=== PATIENT | female | born 1985 | race Caucasian/White ===

== ENCOUNTER 2019-09-07 22:09 | Emergency (ER) | payer OTHER, SELFPAY ==
[2019-09-07 22:20] VITALS: BP 132/74; PULSE 89; RESP 15; TEMP 36.9; O2SAT 99
--- NOTE | 2019-09-07 22:58 | ED.EXTPRO ---
HPI - Extremity Problem General Chief complaint: Extremity Problem,Nontraumatic Stated complaint: L arm pain Source: patient Mode of arrival: ambulatory Limitations: clinical condition History of Present Illness HPI Narrative: 34 y.o. female c/o sudden onset of pain in the dorsum of the left hand and wrist radiating up to the medial elbow, onset 48 hours ago. It's a pressure sensation which waxes and wanes between #4 - #6/10 associated with tingling sensation of 2nd - 5th fingertips. Sometimes her fingers and whole hand turn white for a short time but does not turn blue. She also c/o swelling of her wrist. The pain is made worse by grabbing onto things, opening and closing her hand and moving her wrist. Raising her arm above her head does not affect it. The pain is decreased if she applies pressure, e.g. sitting on her hand, or applies ice. The pain was most severe last PM. She denies neck, shoulder or axillary pain. Pt states she had a blood clot in her ovary in 2004 for which she took blood thinners for a short time. She had a blood clot in the right shoulder 1.5 years ago which was treated with 12.5 mg warfarin daily. She stopped the medicine after a while. The symptoms of the latter clot were similar to the ones she's having today. She has been moving out of her house for the past few weeks, lifting and carrying a lot of boxes, et cetera. She stopped after the onset of these symptoms because lifting made them worse. She states she has been told she has thick blood. Her maternal grandmother, uncle and aunt are all on blood thinners for clotting problems. She has never been told she has Factor V Leiden deficiency. Related Data Home Medications Medication Instructions Recorded Confirmed quetiapine 200 mg PO HS 09/07/19 09/07/19 Allergies Allergy/AdvReac Type Severity Reaction Status Date / Time clarithromycin Allergy Itching Verified 09/07/19 22:19 Review of Systems Constitutional: Constitutional: Denies chills, Denies fever(s) and Denies weakness Cardiovascular: Cardiovascular: Denies chest pain Respiratory: Respiratory: Denies cough and Denies dyspnea Gastrointestinal: Gastrointestinal: Denies nausea and Denies vomiting Musculoskeletal: Musculoskeletal: Reports no additional musculoskeletal complaints Comments: no leg swelling or pain. Integumentary/Breasts: Comments: Denies dilated veins in the left chest or arm. [facility], [facility] Social History Social History (Updated 09/07/19 @ 23:20 by Giorgio Klein MD) Smoking status: Current every day smoker Exam Const: Other: Appears uncomfortable, holding her left hand and wrist. Neck: Lymphatic: no lymphadenopathy noted Other: no supraclavicular tenderness Chest: Chest palpation & inspection: normal inspection of the chest and no tenderness Other: no left anterior chest dilated veins. Extrem: Left upper extremity: normal to inspection, full ROM, normal capillary refill, shoulder/upper arm (No dilated veins. No tenderness. ), elbow/forearm (tender proximal 1/3 lateral forearm) and wrist tenderness; no cyanosis and no edema Hand/finger images: 1. area of maximal tenderness inside this triangle. 2. No swelling or discoloration 3. no ganglion cyst seen. Course Course Emergency Course: No change in symptoms. Discussed the dx of presumptive left arm/hand strain. Negative d-dimee; no evidence of blood clot. Rest, use wrist splint. Vital Signs Vital signs: Vital Signs Temperature 36.9 C 09/07/19 22:20 Pulse Rate 89 09/07/19 22:20 Respiratory Rate 15 09/07/19 22:20 Blood Pressure 132/74 09/07/19 22:20 Pulse Oximetry 99 09/07/19 22:20 Temperature 36.8 C 09/07/19 23:42 Pulse Rate 72 09/07/19 23:42 Respiratory Rate 19 09/07/19 23:42 Blood Pressure 129/70 09/07/19 23:42 Pulse Oximetry 98 09/07/19 23:42 MDM - Extremity (Nontraumatic) Differential Diagnosis Differential diagnosis: Likely herpes zoster, cellulitis, s
[2019-09-07] MEDS: KETOROLAC (*BKC) 60 MG/2 ML VIAL IM (23:09)
[2019-09-07 23:20] VITALS: BP 128/70; PULSE 70; RESP 16; O2SAT 98
--- NOTE | 2019-09-07 23:22 | PC.NURSE ---
family & patient got warm blankets & soda. Patient denies pain now
[2019-09-07 23:26] LABS: D Dimer 0.19 mg/L (0.19-0.50)
[2019-09-07 23:42] VITALS: BP 129/70; PULSE 72; RESP 19; TEMP 36.8; O2SAT 98
== END 2019-09-07 23:55 | disposition home or self-care (01) ==
PROVIDERS: Emergency Provider Family Medicine; PCP Internal Medicine
DX: M79.642 Pain in left hand (principal); S46.812A Strain of other muscles, fascia and tendons at shoulder and upper arm level, left arm, initial encounter
CPT/HCPCS: 29125; 36415; 85380; 96372; 99281; 99283; J1885

== ENCOUNTER 2019-10-19 11:26 | Outpatient (CLI) | payer OTHER, SELFPAY ==
[2019-10-20 18:03] LABS: SARS-CoV-2 RNA PCR Negative
== END 2019-10-19 11:27 | disposition home or self-care (01) ==
PROVIDERS: PCP Internal Medicine; Visit Provider Internal Medicine
DX: Z20.828 Contact with and (suspected) exposure to other viral communicable diseases (principal)
CPT/HCPCS: 87635; C9803; U0003

== ENCOUNTER 2019-10-22 11:33 | Emergency (ER) | payer OTHER, SELFPAY ==
--- NOTE | ~2019-10-22 | XR_ITS ---
XR hand RT min 3V 10/22/2019 13:31 INDICATION: Right hand pain PROCEDURE: 4 views right hand COMPARISON: No prior studies for comparison. FINDINGS: Fracture, dislocation or subluxation is not identified. The soft tissues appear within norm al limits. No foreign bodies are identified. IMPRESSION: 1: NO ACUTE BONE OR JOINT ABNORMALITY IDENTIFIED. Reviewed, dictated and finalized at location B.
[2019-10-22 11:41] VITALS: BP 128/79; PULSE 68; RESP 20; TEMP 36.1; O2SAT 100
[2019-10-22] MEDS: KETOROLAC (*BKC) 60 MG/2 ML VIAL IM (13:43)
--- NOTE | 2019-10-22 13:59 | ED.UPPEXIN ---
HPI - Extremity Injury (Upper) General Chief Complaint: Extremity Injury, Upper <Melina Casanova PA-C - Last Filed: 10/22/19 15:24> Stated Complaint: R hand pain <MELINDA Johnson Last Filed: 10/22/19 15:24> Time Seen by Provider: 10/22/19 12:19 <Melina Casanova PA-C - Last Filed: 10/22/19 15:24> Source: patient <MELINDA Johnson Last Filed: 10/22/19 15:24> Mode of arrival: ambulatory <MELINDA Johnson Last Filed: 10/22/19 15:24> Limitations: no limitations <MELINDA Johnson Last Filed: 10/22/19 15:24> History of Present Illness HPI narrative: This is a 34-year-old female that presents the emergency department for right second finger pain and swelling x2 days. Reports warmth in the area. Reports she thought she may be cut her nail, but has had continued increased swelling in the area. Reports decreased range of motion due to pain. Denies fever. <Melina Casanova PA-C - Last Filed: 10/22/19 15:24> Related Data Home Medications: Home Medications Medication Instructions Recorded Confirmed quetiapine 200 mg PO HS 09/07/19 09/07/19 <Melina Casanova PA-C - Last Filed: 10/22/19 15:24> Allergies/Adverse Reactions: Allergies Allergy/AdvReac Type Severity Reaction Status Date / Time clarithromycin Allergy Itching Verified 09/07/19 22:19 <Melina Casanova PA-C - Last Filed: 10/22/19 15:24> Review of Systems Review of Systems: Narrative: CONSTITUTIONAL: Denies fever SKIN: Reports redness and swelling MUSCULOSKELETAL: Reports joint pain, and myalgia. <MELINDA Johnson Last Filed: 10/22/19 15:24> All systems reviewed & are unremarkable except as noted in HPI and below <MELINDA Johnson Last Filed: 10/22/19 15:24> [facility] Past Medical History Medical History: Medical History (Updated 10/22/19 @ 15:21 by Melina Casanova PA-C) History of bipolar disorder <Melina Casanova PA-C - Last Filed: 10/22/19 15:24> Social History Social History: Social History (Updated 09/07/19 @ 23:20 by Giorgio Klein MD) Smoking status: Current every day smoker <Melina Casanova PA-C - Last Filed: 10/22/19 15:24> Exam Narrative: Exam Narrative: GENERAL: Well-appearing, well-nourished, and in no acute distress. HEAD: Normocephalic, atraumatic. EYES: EOMI. EXTREMITIES: Normal range of motion. Right second finger with mild edema. Ulnar surface of the nail with paronychia present. Pad of the finger is soft. No concerning erythema of the finger SKIN: Warm, dry, no rash. NEURO: No focal deficits. Alert and oriented x3. PSYCH: Normal mood and affect <Melina Casanova PA-C - Last Filed: 10/22/19 15:24> Course Vital Signs Vital signs: Vital Signs Temperature 96.9 F L 10/22/19 11:41 Pulse Rate 68 10/22/19 11:41 Respiratory Rate 20 10/22/19 11:41 Blood Pressure 128/79 10/22/19 11:41 Pulse Oximetry 100 10/22/19 11:41 Temperature 96.9 F L 10/22/19 11:41 Pulse Rate 88 10/22/19 15:27 Respiratory Rate 16 10/22/19 15:27 Blood Pressure 142/88 H 10/22/19 15:27 Pulse Oximetry 98 10/22/19 15:27 <Melina Casanova PA-C - Last Filed: 10/22/19 15:24> Vital Signs Temperature 96.9 F L 10/22/19 11:41 Pulse Rate 68 10/22/19 11:41 Respiratory Rate 20 10/22/19 11:41 Blood Pressure 128/79 10/22/19 11:41 Pulse Oximetry 100 10/22/19 11:41 Temperature 96.9 F L 10/22/19 11:41 Pulse Rate 88 10/22/19 15:27 Respiratory Rate 16 10/22/19 15:27 Blood Pressure 142/88 H 10/22/19 15:27 Pulse Oximetry 98 10/22/19 15:27 <Alla Driver MD - Last Filed: 10/22/19 16:41> Procedures Abscess I/D hand: Date of Incision: 10/22/19 <Melina Casanova PA-C - Last Filed: 10/22/19 15:24> Time of Incision: 15:20 <Melina Casanova PA-C - Last Filed: 10/22/19 15:24> Side (if applicable): right <Melina Casanova PA-C - Last Filed:
[2019-10-22 15:27] VITALS: BP 142/88; PULSE 88; RESP 16; O2SAT 98
== END 2019-10-22 15:44 | disposition home or self-care (01) ==
PROVIDERS: Emergency Provider General Practice; PCP Internal Medicine
DX: L03.011 Cellulitis of right finger (principal)
CPT/HCPCS: 10060; 12001; 26010; 73130; 96372; 99283; J1885

== ENCOUNTER 2019-11-03 11:05 | Outpatient (CLI) | payer OTHER, SELFPAY ==
[2019-11-05 18:02] LABS: SARS-CoV-2 RNA PCR Negative
== END 2019-11-03 11:06 | disposition home or self-care (01) ==
LOC: CHSLAB 11:07
PROVIDERS: PCP Internal Medicine; Visit Provider Internal Medicine
DX: Z20.828 Contact with and (suspected) exposure to other viral communicable diseases (principal)
CPT/HCPCS: 87635; C9803; U0003

== ENCOUNTER 2020-02-28 01:02 | Emergency (ER) | payer OTHER, SELFPAY ==
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
[2020-02-28 01:18] VITALS: BP 100/60; PULSE 80; RESP 18; TEMP 36.6; O2SAT 95
[2020-02-28 02:17] LABS: Basophils Absolute Auto 0.04 K/mm3 (0.00-0.10); Basophils Percent Auto 0.6 % (0.0-1.0); Eosinophils Percent Auto 1.4 % (1.0-6.0); Hematocrit 41.1 % (35.0-49.0); Hemoglobin 13.4 g/dL (12.0-15.0); Immature Granulocyte Absolute 0.01 K/mm3 (0.00-0.00); Immature Granulocyte Percent A 0.1 % (0.0-0.0); Lymphocytes Absolute Auto 2.04 K/mm3 (1.10-4.50); Lymphocytes Percent Auto 29.2 % (18.0-42.0); Mean Corpuscular HGB Conc 32.6 g/dL (32.0-36.0); Mean Corpuscular Hemoglobin 31.5 pg (27.0-31.0); Mean Corpuscular Volume 96.7 fL (78.0-102.0); Mean Platelet Volume 10.4 fl (9.2-11.8); Monocytes Absolute Auto 0.34 K/mm3 (0.10-0.90); Monocytes Percent Auto 4.9 % (2.0-11.0); Neutrophils Absolute Auto 4.5 K/mm3 (1.7-7.2); Neutrophils Percent Auto 63.8 % (50.0-70.0); Platelet Count Result 286 K/mm3 (150-420); Red Blood Count 4.25 M/mm3 (4.20-5.40); Red Cell Distribution Width 12.5 % (11.6-14.4)
[2020-02-28] MEDS: ACETAMINOPHEN 500 MG TABLET 1000 MG PO (02:19)
[2020-02-28 02:30] VITALS: BP 120/60; PULSE 80; RESP 18; O2SAT 95
[2020-02-28 02:32] LABS: Alanine Aminotransferase 43 U/L (14-59); Albumin Level 4.1 g/dL (3.4-5.0); Alkaline Phosphatase 88 U/L (46-116); Anion Gap 7 mmol/L (8-16); Aspartate Amino Transferase 14 U/L (15-37); Bilirubin,Total 0.6 mg/dL (0.00-1.00); Blood Urea Nitrogen 21 mg/dL (7-18); Calcium 8.9 mg/dL (8.5-10.1); Carbon Dioxide 28 mmol/L (21-32); Chloride 101 mmol/L (98-108); Estimated CRCL calculation 80 ml/min; Estimated Glomerular Filt Rate > 60; Glucose 88 mg/dL (70-99); Lipase 46 U/L (73-393); Osmolality Calculated 284 mOsm/kg (285-295); Potassium 3.7 mmol/L (3.5-5.1); Sodium 136 mmol/L (136-145); Total Protein 8.2 g/dL (6.4-8.2)
[2020-02-28 02:59] VITALS: BP 111/60; PULSE 80; RESP 18; TEMP 36.8; O2SAT 95
[2020-02-28 03:13] LABS: Amphetamine Screen Urine Positive (Negative); Barbiturate Screen Urine Negative (Negative); Benzodiazepines Screen Urine Positive (Negative); Cannabinoid Screen Urine Positive (Negative); Cocaine Screen Urine Negative (Negative); Methadone Screen Urine Negative (Negative); Opiate Screen Urine Negative (Negative); Phencyclidine Screen Urine Negative (Negative)
== END 2020-02-28 03:00 | disposition home or self-care (01) ==
PROVIDERS: Emergency Provider Family Medicine; PCP Internal Medicine
DX: M54.2 Cervicalgia (principal); V89.2XXA Person injured in unspecified motor-vehicle accident, traffic, initial encounter
CPT/HCPCS: 36415; 70450; 72125; 80053; 80307; 83690; 85025; 99282; 99284

== ENCOUNTER 2022-01-16 17:36 | Emergency (ER) | payer MEDICAID, SELFPAY ==
--- NOTE | ~2022-01-16 | CT_ITS ---
EXAMINATION: CT abdomen pelvis wo con DATE: 01/16/2022 19:20 INDICATION: LOWER Abdominal pain TECHNIQUE: Computed tomography (CT) of the abdomen and pelvis was performed without intravenous contr ast. Automated exposure control and iterative reconstruction technique were employed. The dose-length product was 354.22 mGy-cm. COMPARISON: 07/14/2017. FINDINGS: Lower thorax: Unremarkable Liver: Normal. Biliary/Gallbladder: Gallbladder is absent. No bile duct dilation. Pancreas: No mass or duct dilation. Spleen: Old granulomatous calcifications Adrenals:No mass. Kidneys: No mass, stone, or hydronephrosis. The mid and distal ureters are poorly visualized. GI tract: No small or large bowel dilation. Appendix not visualized. Large volume of colonic stool. Mesentery/Peritoneum: No ascites, mass, or free air. Retroperitoneum: No mass. Pelvis: Mild bladder wall thickening given the degree of distention. Retroverted uterus. Soft Tissues: Uncomplicated fat-containing umbilical hernia. Bones: No acute osseous finding. Bilateral sacroiliitis. IMPRESSION: Possible cystitis. Possible constipation. Otherwise no acute abdominopelvic process detected. Reviewed, dictated and finalized at location K. AINABILITY CONSULTANT IMPRESSION: Possible cystitis. Possible constipation. Otherwise no acute abdominopelvic pro cess detected.
[2022-01-16 17:48] VITALS: BP 126/94; PULSE 92; RESP 18; TEMP 36.6; O2SAT 100
--- NOTE | 2022-01-16 18:05 | ECG_ITS ---
Measurements Intervals [place] Rate: 84 P: 51 AK: 147 QRS: 53 QRSD: 99 T: 49 QT: 374 QTc: 443 Interpretive Statements SINUS RHYTHM NORMAL ECG NO PREVIOUS ECG AVAILABLE FOR COMPARISON Electronically Signed On 01-17-2022 8:46:51 VETERINARY TECHNICIAN ASSISTANT by Simba San M.D.
[2022-01-16] MEDS: SODIUM CHLORIDE 0.9% IV 1,000 ML 999 ML IV CONT (18:21)
[2022-01-16] MEDS: KETOROLAC 30 MG/ML VIAL (*BKC) IV PUSH (18:22)
[2022-01-16] MEDS: METOCLOPRAMIDE HCL INJ 10 MG/2 ML VIAL IV PUSH (18:22)
[2022-01-16 18:45] LABS: Basophils Absolute Auto 0.02 K/mm3 (0.00-0.10); Basophils Percent Auto 0.4 % (0.0-1.0); Eosinophils Absolute Auto 0.01 K/mm3 (0.02-0.50); Eosinophils Percent Auto 0.2 % (1.0-6.0); Hematocrit 41.1 % (35.0-49.0); Hemoglobin 13.6 g/dL (12.0-15.0); Immature Granulocyte Absolute 0.01 K/mm3 (0.00-0.00); Immature Granulocyte Percent A 0.2 % (0.0-0.0); Lymphocytes Absolute Auto 1.32 K/mm3 (1.10-4.50); Lymphocytes Percent Auto 23.8 % (18.0-42.0); Mean Corpuscular HGB Conc 33.1 g/dL (32.0-36.0); Mean Corpuscular Hemoglobin 30.5 pg (27.0-31.0); Mean Corpuscular Volume 92.2 fL (78.0-102.0); Mean Platelet Volume 10.5 fl (9.2-11.8); Monocytes Absolute Auto 0.25 K/mm3 (0.10-0.90); Monocytes Percent Auto 4.5 % (2.0-11.0); Neutrophils Absolute Auto 3.9 K/mm3 (1.7-7.2); Neutrophils Percent Auto 70.9 % (50.0-70.0); Platelet Count Result 187 K/mm3 (150-420); Red Blood Count 4.46 M/mm3 (4.20-5.40); Red Cell Distribution Width 12.4 % (11.6-14.4); White Blood Count 5.6 K/mm3 (4.8-10.8)
[2022-01-16 18:51] LABS: Add Urine Microscopic? YES; Bilirubin Urine Negative (Negative); Blood Urine Negative (Negative); Color Urine Yellow (Yellow); Glucose Urine UA Negative (Negative); Ketones Urine 3+ (Negative); Leukocyte Esterase Ur Trace LEU/UL (Negative); Nitrate Urine Negative (Negative); Protein Urine 1+ (Negative); pH Urine 6.5 (5.0-8.0)
[2022-01-16 18:53] LABS: INR 1.1; Partial Thromboplastin Time 29.1 SEC (23.90-30.70); Prothrombin Time 11.6 Seconds (9.50-12.10)
[2022-01-16 18:57] LABS: Alanine Aminotransferase 20 U/L (14-59); Albumin Level 3.4 g/dL (3.4-5.0); Alkaline Phosphatase 83 U/L (46-116); Anion Gap 10 mmol/L (8-16); Aspartate Amino Transferase 13 U/L (15-37); Bilirubin,Total 0.6 mg/dL (0.00-1.00); Blood Urea Nitrogen 19 mg/dL (7-18); Calcium 8.2 mg/dL (8.5-10.1); Carbon Dioxide 24 mmol/L (21-32); Chloride 108 mmol/L (98-108); Estimated CRCL calculation 83 ml/min; Estimated Glomerular Filt Rate > 60; Glucose 108 mg/dL (70-99); Lactic Acid Reflex 0.8 mmol/L (0.4-2.0); Lipase 65 U/L (73-393); Osmolality Calculated 297 mOsm/kg (285-295); Potassium 3.2 mmol/L (3.5-5.1); Sodium 142 mmol/L (136-145)
[2022-01-16 19:02] LABS: Appearance Urine Slightly Cloudy (Clear); Calcium Oxalate Crystals Urine Many /hpf; Squamous Epithelial Cell Urine Many /hpf (Few); WBC Urine Rare /hpf (0-3)
[2022-01-16 19:03] LABS: Amorphous Sediment Urine Few; Mucus Urine Heavy /lpf; Troponin I < 4.0 ng/L (0.00-60.4)
[2022-01-16 19:04] LABS: Amphetamine Screen Urine Positive (Negative); Barbiturate Screen Urine Negative (Negative); Benzodiazepines Screen Urine Negative (Negative); Cannabinoid Screen Urine Positive (Negative); Cocaine Screen Urine Negative (Negative); Methadone Screen Urine Negative (Negative); Opiate Screen Urine Negative (Negative); Phencyclidine Screen Urine Negative (Negative); Pregnancy On Board Control Positive; Urine Pregnancy Test Negative
[2022-01-16 19:32] LABS: Influenza A QL RT-PCR Negative (Negative); Influenza B QL RT-PCR Negative (Negative); SARS-CoV-2 RNA PCR Negative (Negative)
--- NOTE | 2022-01-16 19:46 | ED.ABDPAIN ---
HPI - Abdominal Pain General Chief Complaint: Abdominal Pain Stated Complaint: Stomache and back pain Time Seen by Provider: 01/16/22 17:38 Source: patient Mode of arrival: ambulatory Limitations: no limitations History of Present Illness HPI narrative: this is a 36-year-old female with weakness abdominal pain with mild dysuria with no flank pain no hematuria does have some nausea with no vomiting no chest pain no shortness of breath no fever chills. MD elicited complaint: abdominal pain Related Data Home Medications Medication Instructions Recorded Confirmed quetiapine 200 mg tablet (Seroquel) 200 mg PO HS 09/07/19 01/16/22 clonidine HCl 0.1 mg tablet 0.1 mg PO DAILY 01/16/22 01/16/22 Allergies Allergy/AdvReac Type Severity Reaction Status Date / Time clarithromycin Allergy Mild Itching Verified 06/16/20 10:29 ondansetron Allergy Mild Verified 06/16/20 10:29 Review of Systems Review of Systems: All systems reviewed & are unremarkable except as noted in HPI and below PMFSH Past Medical History Medical History History of bipolar disorder Social History Social History Smoking status: Current every day smoker Gender identity (if verbalized by the patient): Female Exam Const: General: healthy appearing Nutritional Appearance: well nourished Orientation/consciousness: patient oriented x3 Limitations: no limitations HENMT: Head: normal to inspection Teeth and gingiva: dentition normal Throat: posterior oropharynx normal Eyes: Conjunctivae: conjunctivae normal Pupils: Equal, round and reactive pupils present EOM: EOMs intact bilaterally Direct Ophthalmoscopy: no photophobia Neck: Neck: normal visual inspection Chest: Chest palpation & inspection: normal inspection of the chest Resp: Effort & Inspection: normal respiratory effort Cardio: Rate: regular rate Rhythm: regular rhythm GI: GI Palp: Yes Soft to palpation Auscultation: normal bowel sounds : General: Yes bladder normal to palpation Urinary Catheter: Urinary Catheter: patent and draining Back/Spine/Pelvis: Back: no CVA tenderness Skin: General skin exam: normal color Rashes: no rashes Wounds: no wounds Neuro: General: patient oriented x3 and moves all extremities Cranial nerves: Yes Nystagmus not present Speech: normal speech Extrem: General: normal to inspection, no clubbing, cyanosis or edema and no pedal edema Psych: Mental Status: mental status grossly normal Affect: normal affect Course Course Emergency Course: Labs and CT scan were reviewed with patient patient did receive IV fluids with some IV Zofran and IV Toradol and receiving ceftriaxone, CT scan was reviewed which shows a possible cystitis along with her UA will treat urinary tract infection. Vital Signs Vital signs: Vital Signs Temperature 36.6 C 01/16/22 17:48 Pulse Rate 92 01/16/22 17:48 Respiratory Rate 18 01/16/22 17:48 Blood Pressure 126/94 H 01/16/22 17:48 Pulse Oximetry 100 01/16/22 17:48 Oxygen Delivery Room Air 01/16/22 17:48 Temperature 36.6 C 01/16/22 17:48 Pulse Rate 92 01/16/22 17:48 Respiratory Rate 18 01/16/22 17:48 Blood Pressure 126/94 H 01/16/22 17:48 Pulse Oximetry 100 01/16/22 17:48 Oxygen Delivery Room Air 01/16/22 17:48 MDM - Abdominal Pain Lab Data 01/16/22 18:34 01/16/22 18:34 Labs: Lab Results 01/16/22 01/16/22 01/16/22 Range/Units 18:34 18:34 18:34 WBC 5.6 (4.8-10.8) K/mm3 RBC 4.46 (4.20-5.40) M/mm3 Hgb 13.6 (12.0-15.0) g/dL Hct 41.1 (35.0-49.0) % MCV 92.2 (78.0-102.0) fL MCH 30.5 (27.0-31.0) pg MCHC 33.1 (32.0-36.0) g/dL RDW 12.4 (11.6-14.4) % Plt Count 187 (150-420) K/mm3 MPV 10.5 (9.2-11.8) fl Immature Gran % (Auto) 0.2 H (0.0-0.0) % Neut % (Auto) 70.9 H (50.0-70.0)
[2022-01-16 20:13] VITALS: BP 118/88; PULSE 69; RESP 20; TEMP 37.1; O2SAT 99
--- NOTE | 2022-01-25 23:29 | PC.NURSE ---
[place] [address]/16/22 Ceftriaxone stopped 191301/16/22
== END 2022-01-16 20:50 | disposition home or self-care (01) ==
PROVIDERS: Emergency Provider Emergency Medicine; PCP Internal Medicine
DX: N30.00 Acute cystitis without hematuria (principal); F17.200 Nicotine dependence, unspecified, uncomplicated; Z20.822 Contact with and (suspected) exposure to COVID-19
CPT/HCPCS: 36415; 74176; 80053; 80307; 81001; 81025; 83605; 83690; 84484; 85025; 85610; 85730; 87502; 93005; 96361; 96374; 96375; 99284; J0696; J1885; J2765; J7030; U0003; U0005